=== PATIENT | male | born 1985 | race Caucasian/White ===

== ENCOUNTER 2017-12-09 10:11 | Emergency (ER) | payer SELFPAY ==
[~2017-12-09] VITALS: Ht 165.1 cm; Wt 62.6 kg
[2017-12-09 10:15] VITALS: BP_SYST 150
[2017-12-09] MEDS ORDERED: ONDANSETRON 4 MG ODT TAB PO ONE (10:30)
== END 2017-12-09 11:10 ==
LOC: SED 10:11
DX: K52.9 Noninfective gastroenteritis and colitis, unspecified (principal); Z88.0 Allergy status to penicillin
CPT/HCPCS: 99283; Q0162